=== PATIENT | female | born 1960 | race Caucasian/White ===

== ENCOUNTER → 2024-08-07 | Outpatient (CLI) | payer SELFPAY ==
--- NOTE | 2024-08-07 09:05 | RAD_ITS ---
EXAM: Air-contrast esophagram barium swallow. CLINICAL HISTORY: Dysphagia. COMPARISON: None TECHNIQUE: The patient ingested barium. Multiple images were obtained fluoroscopically. Fluoroscopic time: 20.2 seconds 3.7 mGy. FINDINGS: The patient ingested barium. No evidence of esophageal obstruction or mass lesion. No evidence of gastroesophageal reflux. The patient ingested a 12 mm tablet the barium without any difficulty. RAD/Esophagus Dual Contrast IMPRESSION: Unremarkable air contrast barium swallow. Reading Location: [facility]
== END | disposition home or self-care (01) ==
PROVIDERS: PCP Physician Assistant; Referring Provider Nurse Practitioner Acute Care; Visit Provider Nurse Practitioner Acute Care
DX: R13.10 Dysphagia, unspecified (principal)
CPT/HCPCS: 74221

== ENCOUNTER 2024-09-12 11:55 | Day surgery (SDC) | payer SELFPAY ==
[2024-09-12] VITALS (11 sets, daily range): BP systolic 128–146; BP diastolic 71–82; PULSE 68–79; RESP 15–77; TEMP 36.1–37.4; O2SAT 94–97; BMI 31.4
[2024-09-12] MEDS: Lactated Ringers 1,000 ML 15 ML IV (12:37)
--- NOTE | 2024-09-12 12:50 | PRE.ANES_ITS ---
ASA Classification* ASA Classification ASA Classification: 3 Assessment & Plan Anesthesia* Anesthesia Assessment Anesthesia Assessment: Discussed sedation and/or anesthesia options, risks, benefits, and alternatives with patient/parents/legal guardian/POA. Questions invited. The patient/parents/legal guardian/POA seems to understand and agrees to proceed with anesthesia plan. Reviewed the physical assessment, medical history, allergy history and patient home medications list prior to surgery/procedure/anesthetic and documented any changes. Performed airway and anesthesia risk assessments. Anesthesia Type Anesthesia Type: MAC History Source History Obtained from:: Patient, Chart and Significant Other Anesthesia Focused Assessment* Temperature: 97.4 F Pulse Rate: 68 Blood Pressure: 140/77 Respiratory Rate: 16 Pulse Ox: 94 Oxygen Delivery Method: Room Air Airway Assessment Mouth opens: 2 cm Mallampati Score: II Teeth Condition: Intact Focused Labs Anesthesia Preop lab: CBC WBC 7.7 K/mm3 (4.4-11.0) 07/10/24 15:07/10/24 RBC 4.58 M/mm3 (4.2-5.4) 07/10/24 15:25 07/10/24 Hgb 13.7 g/dL (12.0-15.0) 07/10/24 15:25 07/10/24 Hct 40.5 % (37-47) 07/10/24 15:25 07/10/24 Plt Count 327 K/mm3 (150-450) 07/10/24 15:25 07/10/24 CHEMISTRY Potassium 3.8 mmol/L (3.3-5.1) 07/10/24 15:25 07/10/24 Sodium 141 mmol/L (133-145) 07/10/24 15:25 07/10/24 BUN 16 mg/dL (4-19) 07/10/24 15:25 07/10/24 Creatinine 0.96 mg/dL (0.70-1.20) 07/10/24 15:25 07/10/24 Glucose 100 mg/dL (70-99) H 07/10/24 15:25 07/10/24 TSH 5.590 uIU/mL (0.300-4.200) H 07/10/24 15:25 COAG Pre-Assessment Diagnosis/Proposed Procedure Planned Operative Procedure(s): EGD Anesthesia History 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 When Was Last Pacemaker Check QUESTION #4 FULL TEXT: You/Your Family Experience fever (hyperthermia) with Anesthesia Last Oral Intake Last Oral intake: Last Oral Intake NPO since 10:30 09/12/24 12:24 Meds taken in AM with sips of water? Meds patient instructed to take am of surgery PONV PONV - surveillance camera technician: PONV - surveillance camera technician Female Yes 09/10/24 12:15 HX of Motion Sickness Yes 09/10/24 12:15 HX of N/V After Surgery No 09/10/24 12:15 Non-Smoker Yes 09/10/24 12:15 Duration of Surgery greater No 09/10/24 12:15 than 60 minutes Number of Risk Factors 3 09/10/24 12:15 PONV Score Moderate Risk 09/10/24 12:15 Height & Weight Height & Weight: Anesthesia: Height & Weight Height 5 ft 4 in 09/12/24 12:24 Weight: 83 kg 09/12/24 12:24 Body Mass Index (BMI) 31.4 09/12/24 12:24 Respiratory Assessment Respiratory Assessment - surveillance camera technician: Respiratory Tract Infection Hx - surveillance camera technician Hx Respiratory Tract Infection No 09/10/24 12:15 STOP Sleep Apnea STOP Sleep Apnea - surveillance camera technician: STOP Sleep Apnea - surveillance camera technician Hx Hypertension No 09/10/24 12:15 Hx Sleep Apnea No 09/10/24 12:15 CPAP BIPAP Do you snore loudly (louder Yes 09/10/24 12:15 than talking or can be heard Do you often feel tired/ No 09/10/24 12:15 fatigued/ sleepy during daytime? Has anyone observed you stop No 09/10/24 12:15 breathing during sleep? STOP Results Negative 09/10/24 12:15 QUESTION #5 FULL TEXT : Do you snore loudly (louder than talking or can be heard through closed doors)? 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 Specify any problems Hx of Preganancy in last 3 No 09/10/24 12:15 Months Nurse Filling Out Transfusion DSCHRIBER 09/10/24 12:15 & Questions: Date: 09/10/24 09/10/24 12:15 Time: 12:17 09/10/24 12:15 Patient unable to answer at this time (ie. confused, unrespo /Reproduction History /Reproductive History - surveillance camera technician: /Reproductive Hx- surveillance camera technician Hx Now No 09/10/24 12:15 Gestational Age (in weeks): EDC: Hx Hx Para Hx Section SAB No 09/10/24 12:15 Active Medications Active Medications: Current Medications Generic Name Dose Route Start Last Admin Trade Name Denise PRN Reason Stop Dose Admin Lactated Ringer's 1,000 mls @ 15 mls/hr 09/12/24 12:45 09/12/24 12:37 IV 15 mls/hr .Q48H ENMA Administration PFSH Medical History Loss of hearing Wears glasses Post-menopausal Anxiety Shortness of breath on exertion Non-smoker GERD (gastroesophageal reflux disease) Hot flashes Home Medications ?Medication ?Instructions ?Recorded ?Last Taken ?Type multivitamin 1 tab PO QDAY 07/16/24 Unkno wn History pantoprazole 40 mg tablet,delayed 40 mg PO QDAY #90 ta bs 07/16/24 Unknown Rx release Allergy/AdvReac Type Severity Reaction Status Date / Time No Known Allergies Allergy Verified 09/12/24 12:22 Family History Father CAD (coronary artery disease) Mother Diabetes Daughter Thyroid disorder Surgical History Hx of heart surgery Social History household members: spouse Smoking Status: Never smoker alcohol intake: never substance use type: does not use Review of Systems (Anesthesia) ROS Narrative System reviewed and no additional complaints, except as documented. Physical Exam Const alert and oriented x3 HEENT dentition normal Neck full ROM Resp normal respiratory effort Cardio regular rate Psych Psych Narrative: flat affect
--- NOTE | 2024-09-12 13:00 | EGD_PTH ---
PATIENT: ROMERO SQUIRES LOC: EN U#:[id number] AGE/SX: 64/F ROOM: RE09/12/[address]: Dr. Dedrick Fuller DO : 1960 BED: DIS: 09/12/2024 SPEC #: [id number] RECD: 09/12/24 17:22 STATUS: TRAVIS TONJA #: [id number] ANGELINA: 09/12/24 13:[address]: Dedrick Fuller DEPT: SURGICAL PATHOLOGY RECD BY: Vasyl Shetty ENTERED: 09/15/24 07:34 SP TYPE: EGD BIOPSY OT DR: CHAYO Barragan Tissues: A - Duodenum, NOS B - Gastric mucous membrane C - Esophagus, NOS Procedures: Immunohistochemical Stains Surgery Specimen Level IV HEADER OPERATION: EGD with biopsy, dilation PRE-OP DIAGNOSIS: Dysphagia TISSUE SUBMITTED: A- Duodenum biopsy, B- Gastric antrum biopsy, C- Random esophagus biopsy MICROSCOPIC DIAGNOSIS A. Small bowel, duodenum, biopsy: * Benign small bowel mucosa with prominent Rafael's glands B. Stomach, gastric antrum, biopsy: * Antral/oxyntic mucosa with mild chronic inflammation * No morphologic evidence of Helicobacter pylori organisms identified on H&E or immunostained sections C. Esophagus, random, biopsy: * Benign squamous epithelium * Oxyntocardiac type mucosa with mild chronic inflammation, negative for goblet cells * Focal pancreatic acinar cell metaplasia MICROSCOPIC DESCRIPTION Slides are reviewed. GROSS DESCRIPTION A. Received in formalin in a container labeled with the patient's name, date of , and duodenum biopsy are 2 pineda-pink fragments of mucosal tissue each measuring 0.4 x 0.4 x 0.3 cm. Submitted in toto in A1. B. Received in formalin in a container labeled with the patient's name, date of , and gastric antrum for H. pylori and path are 2 pineda-pink fragments of mucosal tissue measuring 0.5 x 0.2 x 0.2 cm and 0.8 x 0.2 x 0.2 cm. Submitted in toto in B1. C. Received in formalin in a container labeled with the patient's name, date of , and random esophagus biopsy are 2 pineda-pink fragments of mucosal tissue each measuring 0.5 x 0.3 x 0.2 cm. Submitted in toto in C1. [facility] 09-15-2024 CPT:52832z2,96451
--- NOTE | 2024-09-12 13:18 | HP.PCM_ITS ---
HPI - General General Date of Admission: 09/12/24 Date of Service: 09/12/24 Chief Complaint: dysphagia HPI Narrative ROMERO SQUIRES, is a 64 F who presents for the evaluation of dysphagia [facility] [place] 06/12/2024 FINDINGS: Patient was given thin liquids, cookie texture, and peach textures. ORAL PHASE: Normal deglutition. PHARYNGEAL PHASE: Normal swallowing. ASPIRATION: No aspiration however there was penetration with thin liquids. STRUCTURE: Normal. No visible obstruction, stricture, or dilatation. OTHER: Limited views of the distal esophagus demonstrated occasiona l delayed emptying with thin liquids. - seen in office today with her - she reports esophageal delay with swallowing - denies any regurgitation - only notices delay with liquids not solids - symptoms the past couple of months - denies any HB - denies nay N/V - denies any changes in her weight - she denies any medical history - reports a heart surgery as a child for PFO or VSD - she is not really sure - denies any medications other than a muti vitamin - reports she is allergic to an antibiotic - states this caused diarrhea - has this written down at home but did not bring name of medication with her - denies any lung or kidney disease - does not want to take any medications - reports bowel habits now she has to be careful what she eats or she will have diarrhea - denies any bleeding - she has a BM daily - denies any abdominal pain - denies any prior colonoscopy - denies any family h/o colon CA or polyps - reports a COLOGUARD was negative May 2024 [facility] Medical History Loss of hearing Wears glasses Post-menopausal Anxiety Shortness of breath on exertion Non-smoker GERD (gastroesophageal reflux disease) Hot flashes Home Medications ?Medication ?Instructions ?Recorded ?Last Taken ?Type multivitamin 1 tab PO QDAY 07/16/24 Unkno wn History pantoprazole 40 mg tablet,delayed 40 mg PO QDAY #90 ta bs 07/16/24 Unknown Rx release Allergy/AdvReac Type Severity Reaction Status Date / Time No Known Allergies Allergy Verified 09/12/24 12:22 Family History Father CAD (coronary artery disease) Mother Diabetes Daughter Thyroid disorder Surgical History Hx of heart surgery Social History household members: spouse Smoking Status: Never smoker alcohol intake: never substance use type: does not use ROS Constitutional Constitutional: Denies fatigue, fever(s), poor appetite, weight gain or weight loss Gastrointestinal Gastrointestinal: Denies belching, bloating, change in bowel habits, change in stool character, chewing difficulty, coffee ground emesis, constipation, cramping, diarrhea, dyspepsia, dysphagia, early satiety, excessive flatus, fecal incontinence, heartburn, hematemesis, hematochezia, hemorrhoids, loose stools, melena, nausea, odynophagia, rectal bleeding, tenesmus, vomiting or weight changes Vital Signs Vital Signs Vital Signs: 09/12/24 12:24 09/12/24 12:24 09/12/24 12:52 Temperature 97.4 F L 97.4 F L Temperature Source Temporal Pulse Rate 68 68 Respiratory Rate 16 16 Respiratory Pattern Normal Blood Pressure 140/77 H 140/77 H Blood Pressure Mean 98 Blood Pressure Source Monitor Blood Pressure Position Semi-Fowlers Blood Pressure Location Left Arm Pulse Ox 94 94 Oxygen Delivery Method Room Air Room Air Weight Weight: 182 lb 15.739 oz Body Mass Index (BMI) 31.4 Physical Exam Const alert, oriented x3, no apparent distress and healthy appearing General Appearance: cooperative GI normal to inspection, nondistended, normoactive bowel sounds, soft to palpation, non-tender and non-distended Percussion: normal to percussion Rectal Exam: deferred Assessment & Plan Assessment/Plan (1) Dysphagia: PLAN: Thought Process: normal Assessment and Plan Assessment and Plan (1) Dysphagia: Status: Acute Orders: Orders Esophagus Dual Contrast Today R13.10 - Dysphagia, unspecified Medications: New pantoprazole take 30 minutes before breakfast every morning 40 mg PO QDAY 90 tabs 1RF Plan 64y/o female presents for initial consultation of dysphagia to liquids. She complains of mid-lower esophageal dysphagia with liquids for the past couple of months. MBS completed 06/12/2024 revealed limited views of the esophagus and demonstrated occasional delayed emptying with thin liquids. She denies any N/V, heartburn or weight loss. I have started her on a daily PPI and scheduled Esophagram and EGD. She will follow-up in the office post procedure. Patient Instructions: 1. Start pantoprazole 40mg daily - we have discussed plant to taper down/off pending findings and symptoms as she is hesitant to take any medications 2. Complete Esophagram prior to EGD 3. EGD as scheduled Plan Details Follow Up: 2 Months
--- NOTE | 2024-09-12 13:47 | OP.CCLET_ITS ---
09/12/2024 Ifrah Lopez Re : Upper GI endoscopy procedure for Emma Gonzáles Dear John This procedure was performed on Thursday, September 12, 2024. My impressions and recommendations are as follows: Impressions : - Esophageal mucosal changes consistent with eosinophilic esophagitis. Dilated. - Erythematous mucosa in the gastric body. Biopsied. - Erythematous duodenopathy. Biopsied. - Biopsies were taken with a cold forceps for evaluation of eosinophilic esophagitis. Recommendations : - Discharge patient to home. - Resume previous diet. - Continue present medications. - Await pathology results. My findings are described in the full procedure note, which is enclosed. If I can be of further assistance, please feel free to contact me at . Sincerely, Dedrick Fuller, 09/12/2024 1:46:26 PM This report has been signed electronically.
--- NOTE | 2024-09-12 13:47 | OP.EGD_ITS ---
Patient Name: Emma Gonzáles Procedure Date: 09/12/2024 1:23 PM Date of : 1960 Age: 64 Procedure: Upper GI endoscopy Indications: Dysphagia Providers: Dedrick Fuller DO Referring MD: Ifrah Lopez Medicines: Monitored Anesthesia Care Patient Profile: This is a 64 year old female. Refer to note in patient chart for documentation of history and physical. Patient has symptoms of acute dysphagia, chronic dysphagia, dysphagia with both liquids and solids and chronic dyspepsia. Complications: No immediate complications. Procedure: Pre-Anesthesia Assessment: - Prior to the procedure, a History and Physical was performed, and patient medications and allergies were reviewed. The patient is competent. The risks and benefits of the procedure and the sedation options and risks were discussed with the patient. All questions were answered and informed consent was obtained. Patient identification and proposed procedure were verified by the physician in the pre-procedure area. Mental Status Examination: alert and oriented. Airway Examination: normal oropharyngeal airway and neck mobility. Respiratory Examination: clear to auscultation. CV Examination: normal. Prophylactic Antibiotics: The patient does not require prophylactic antibiotics. Prior Anticoagulants: The patient has taken no anticoagulant or antiplatelet agents except for NSAID medication. ASA Grade Assessment: II - A patient with mild systemic disease. After reviewing the risks and benefits, the patient was deemed in satisfactory condition to undergo the procedure. The anesthesia plan was to use monitored anesthesia care (MAC). Immediately prior to administration of medications, the patient was re-assessed for adequacy to receive sedatives. The heart rate, respiratory rate, oxygen saturations, blood pressure, adequacy of pulmonary ventilation, and response to care were monitored throughout the procedure. The physical status of the patient was re-assessed after the procedure. After obtaining informed consent, the endoscope was passed under direct vision. Throughout the procedure, the patient's blood pressure, pulse, and oxygen saturations were monitored continuously. The Endoscope was introduced through the mouth, and advanced to the second part of duodenum. The upper GI endoscopy was accomplished without difficulty. The patient tolerated the procedure well. Scope In: 1:32:28 PM Scope Out: 1:40:48 PM Total Procedure Duration Time 0 hours 8 minutes 20 seconds Findings: Mucosal changes including ringed esophagus, feline appearance, longitudinal furrows, small-caliber esophagus and circumferential folds were found in the entire esophagus. Biopsies were obtained from the proximal and distal esophagus with cold forceps for histology of suspected eosinophilic esophagitis. A guidewire was placed and the scope was withdrawn. Dilation was performed with a Savary dilator with no resistance at 54 Fr. The dilation site was examined and showed moderate improvement in luminal narrowing. Estimated blood loss was minimal. Patchy mildly erythematous mucosa without bleeding was found in the gastric body. Biopsies were taken with a cold forceps for histology. Verification of patient identification for the specimen was done. Biopsies were taken with a cold forceps for Helicobacter pylori testing. Verification of patient identification for the specimen was done. Estimated blood loss was minimal. Patchy mildly erythematous mucosa without active bleeding and with no stigmata of bleeding was found in the duodenal bulb. Biopsies were taken with a cold forceps for histology. Verification of patient identification for the specimen was done. Estimated blood loss was minimal. Impression: - Esophageal mucosal changes consistent with eosinophilic esophagitis. Dilated. - Erythematous mucosa in the gastric body. Biopsied. - Erythematous duodenopathy. Biopsied. - Biopsies were taken with a cold forceps for evaluation of eosinophilic esophagitis. Recommendation: - Discharge patient to home. - Resume previous diet. - Continue present medications. - Await pathology results. Procedure Code(s): --- Professional --- 22602, Esophagogastroduodenoscopy, flexible, transoral; with insertion of guide wire followed by passage of dilator(s) through esophagus over guide wire 77540, 59,51, Esophagogastroduodenoscopy, flexible, transoral; with biopsy, single or multiple CPT copyright 2021 [employer]. All rights reserved. The codes documented in this report are preliminary and upon color laboratory technician review may be revised to meet current compliance requirements. Dedrick Fuller DO 09/12/2024 1:46:26 PM This report has been signed electronically. Number of Addenda: 0 Note Initiated On: 09/12/2024 1:23 PM
--- NOTE | 2024-09-12 15:13 | PCM.POST.ANE ---
Anesthesia: Postop Eval I Current Vital Signs Temperature: 99.3 F Pulse Rate: 76 Blood Pressure: 145/81 Respiratory Rate: 15 Pulse Ox: 97 Assessment Airway patent: Yes Spontaneous unlabored respirations: Yes Mental status: Awake and Calm nausea: No Vomiting: No Anesthesia Complication: No Fluid Hydration Crystalloid volume administer (ml): 300 Total IV fluid infused: 300 Progress Note Anesthesia document: Postop Eval 1 completed: Yes
--- NOTE | 2024-09-12 15:15 | PCM.POSTANE2 ---
Anesthesia Postop Eval I Sum Postop Eval Completion status Anesthesia document: Postop Eval 1 completed: Yes Anesthesia Postop Eval I Summary Anesthesia Postop Eval I Summary: Anesthesia Postop Eval I: Assessment Summary Airway patent Yes 09/12/24 15:14 Spontaneous unlabored Yes 09/12/24 15:14 respirations Mental status Awake,Calm 09/12/24 15:14 nausea No 09/12/24 15:14 Vomiting No 09/12/24 15:14 Anesthesia Postop Eval I: Fluid Summary Crystalloid volume administer 300 09/12/24 15:15 (ml) Colloids volume administered ( ml) Blood Product volume administered (ml) Total IV fluid infused 300 09/12/24 15:15 Anesthesia Postop Eval I: Summary Notes Anesthesia Complication No 09/12/24 15:14 Anesthesia Complication Comment: Post-operative progress note Anesthesia: Postop Eval II Evaluation Mental status: Awake and Calm Pain Level: 3 nausea: No Vomiting: No
--- NOTE | 2024-09-12 16:10 | PCM.POST.ANE ---
Anesthesia: Postop Eval I Current Vital Signs Temperature: 99.3 F Pulse Rate: 76 Blood Pressure: 145/81 Respiratory Rate: 15 Pulse Ox: 97 Oxygen Delivery Method: Room Air Assessment Airway patent: Yes Spontaneous unlabored respirations: Yes Mental status: Awake nausea: No Vomiting: No Anesthesia Complication: No Fluid Hydration Crystalloid volume administer (ml): 200 Total IV fluid infused: 200 Progress Note Anesthesia document: Postop Eval 1 completed: Yes
== END 2024-09-12 14:37 | disposition home or self-care (01) ==
LOC: EN 12:00 → AC 12:02
PROVIDERS: PCP Physician Assistant; Referring Provider Physician Assistant; Visit Provider Internal Medicine Gastroenterology
PROC: 0DJ08ZZ Inspection of Upper Intestinal Tract, Via Natural or Artificial Opening Endoscopic (ICD-10-PCS; CPT 43235; principal; 2024-09-12 12:55)
DX: K21.00 Gastro-esophageal reflux disease with esophagitis, without bleeding (principal); K22.89 Other specified disease of esophagus; K31.89 Other diseases of stomach and duodenum; Z79.899 Other long term (current) drug therapy
CPT/HCPCS: 43248; 43239; 88305; 88342; C1769